=== PATIENT | male | born 1955 | race Caucasian/White ===

== ENCOUNTER 2020-04-09 10:09 | Outpatient (CLI) | payer MEDICARE, BC, SELFPAY ==
--- NOTE | ~2020-04-09 | XR_ITS ---
XR lumbar spine min 4V DATE: 04/09/2020 10:29 INDICATION: Chronic right low back pain. No injury. TECHNIQUE: AP, lateral, coned lateral lumbosacral and bilateral oblique views COMPARISON: 12/04/2004 lumbar spine FINDINGS: There is minimal anterolisthesis at L4-5. No spondylolysis. There is moderately severe degenerative disc disease and associated minimal retrolisthesis at L2-3. No fracture or bone destruction is evident. The lumbar pedicles are intact. The sacroiliac joints are unremarkable. There is a prominent amount fecal material in the colon. IMPRESSION: Moderately severe degenerative disease and associated minimal retrolisthesis of L2-3 Grade 1 anterolisthesis at L4-5 Reviewed, dictated and finalized at location A. [facility] IMPRESSION: Moderately severe degenerative disease and associated minimal retro listhesis of L2-3 Grade 1 anterolisthesis at L4-5
== END 2020-04-09 10:10 | disposition home or self-care (01) ==
LOC: ANHIMG 10:19
PROVIDERS: PCP Internal Medicine; Visit Provider Internal Medicine
DX: M54.5 Low back pain (principal); G89.29 Other chronic pain; M51.36 Other intervertebral disc degeneration, lumbar region; M43.16 Spondylolisthesis, lumbar region
CPT/HCPCS: 72110

== ENCOUNTER → 2022-05-19 12:32 | Outpatient (CLI) | payer MEDICARE, BC, SELFPAY ==
--- NOTE | ~2022-05-19 | XR_ITS ---
XR lumbar spine 2-3V DATE: 05/19/2022 13:01 INDICATION: Chronic low back pain TECHNIQUE: AP, lateral, coned lateral lumbosacral views COMPARISON: April 09, 2020 lumbar spine FINDINGS: There is osteopenia. There is moderately severe degenerative disease and mild retrolisthesis at L2-3. Minimal anterolisthesis at L4-5 due to degenerative changes apophyseal joints. No fracture or bone destruction. The lumbar pedicles are intact. The sacroiliac joints are intact, wi th some degenerative change, especially on the right. IMPRESSION: Osteopenia Degenerative change; little interval change since April 09, 2020 Reviewed, dictated and finalized at location A.
== END ==
PROVIDERS: PCP Internal Medicine; Visit Provider Internal Medicine
DX: M54.50 Low back pain, unspecified (principal); G89.29 Other chronic pain
CPT/HCPCS: 72100